=== PATIENT | female | born 1935 | race Caucasian/White ===

== ENCOUNTER 2019-03-23 20:24 | Inpatient (IN) | payer MEDICARE, OTHER ==
[~2019-03-23] VITALS: Ht 165.1 cm; Wt 80.3 kg
[2019-03-23] MEDS ORDERED: NAPR-1009 PO (20:41)
[2019-03-23] MEDS ORDERED: VENL75CA56 PO (20:41)
[2019-03-23] MEDS ORDERED: [UNRECOGNIZED DRUG - REMARK] (20:42)
[2019-03-23] MEDS ORDERED: PRAV20TA PO (20:42)
--- NOTE | 2019-03-23 20:52 | NUR ---
Dr. Robbins at bedside for MSE.
[2019-03-23 21:00] LABS: BASOPHILS # (AUTO) 0.1 K/uL (0.0-8.0); BASOPHILS % (AUTO) 1.2 % (0.0-2.0); EOSINOPHILS # (AUTO) 0.3 K/uL (0.0-0.7); EOSINOPHILS % (AUTO) 3.3 % (0.0-7.0); HEMOGLOBIN 12.3 g/dL (10.9-14.3); LYMPHOCYTES # (AUTO) 1.4 K/uL (20.0-40.0); LYMPHOCYTES % (AUTO) 18.5 % (20.5-51.5); MEAN CORPUSCULAR HEMOGLOBIN 28.1 uug (24.7-32.8); MEAN CORPUSCULAR HGB CONC 32 g/dL (32.3-35.6); MEAN CORPUSCULAR VOLUME 86.9 fL (75.5-95.3); MONOCYTES # (AUTO) 0.8 K/uL (2.0-10.0); MONOCYTES % (AUTO) 10.1 % (0.0-11.0); NEUTROPHILS # (AUTO) 5.1 K/uL (1.8-8.9); NEUTROPHILS % (AUTO) 66.9 % (38.5-71.5); PLATELET COUNT (AUTO) 292 K/uL (179-408); RED BLOOD CELL COUNT(AUTO) 4.38 MIL/uL (3.63-4.92); WHITE BLOOD COUNT (AUTO) 7.7 K/uL (3.8-11.8)
[2019-03-23 21:07] LABS: CREATININE 0.9 mg/dL (0.6-1.3); POTASSIUM 3.9 mmol/L (3.5-5.1)
[2019-03-23] MEDS ORDERED: ONDANSETRON 4 MG/2 ML VIAL ONE (21:12)
[2019-03-23] MEDS ORDERED: GLUCAGON,HUMAN RECOMBINANT 1 MG VIAL ONE ×2 (21:13→22:03)
[2019-03-23 21:15] LABS: BILIRUBIN,DIRECT 0.1 mg/dL (0.0-0.2); BILIRUBIN,TOTAL 0.2 mg/dL (0.2-1.0); TOTAL PROTEIN, SERUM 7.1 g/dL (6.4-8.2)
[2019-03-23] MEDS ORDERED: GLUCAGON,HUMAN RECOMBINANT 1 MG VIAL IVP ONE ×2 (21:15→22:00)
[2019-03-23] MEDS ORDERED: ONDANSETRON 4 MG/2 ML VIAL IV ONE (21:15)
--- NOTE | 2019-03-23 21:21 | NUR ---
Xray at bedside.
--- NOTE | 2019-03-23 21:32 | NUR ---
Pt states unable to provide urine at this time, just went at the restaurant.
--- NOTE | 2019-03-23 21:53 | NUR ---
Pt states still feels like something is stuck in her throat but has stopped vomiting.
--- NOTE | 2019-03-23 22:24 | NUR ---
Performed swallow eval, patient had difficulty swallowing 5ml of water and started gagging.
--- NOTE | 2019-03-23 22:39 | NUR ---
Dr. Robbins speaking with Dr. Stephen Mills for GI consult.
[2019-03-23] MEDS ORDERED: IV NS 1000 ML 1,000 ML IV ONE (22:45)
--- NOTE | 2019-03-23 22:48 | NUR ---
Dr. Robbins speaking with Sergio Hermosillo NP. Patient accepted for admission to CCU for esophageal food impaction.
--- NOTE | 2019-03-23 22:50 | NUR ---
Sergio Hermosillo DNP at bedside.
--- NOTE | 2019-03-23 23:17 | NUR ---
Eleanor sanchez in ED - 03/24/19 at 0012 by LORE Report given to Otilio MILLARD.
--- NOTE | 2019-03-23 23:17 | NUR ---
Report given to Amaris [employer]RA[employer].
[2019-03-23] MEDS ORDERED: IV NS 1000 ML 1,000 ML IV PRN (23:31)
[2019-03-23] MEDS ORDERED: Z GUARD REMEDY PASTE 57 GM TUBE TOP PRN (23:45)
[2019-03-23] MEDS ORDERED: ONDANSETRON 4 MG/2 ML VIAL IV PRN (23:45)
[2019-03-24] VITALS (9 sets, daily range): BP systolic 126–157; BP diastolic 60–80
--- NOTE | 2019-03-24 | NUR ---
Admitted an 84 y.o female patient from ER via [facility] with DX: food impaction. AAO, assisted to the BR; gait steady. Voided without difficulty. To CCU2; attached to bedside monitor: SR, denies SOB but gagging, coughing and spitting out white secretions. CCU routines discussed with patient; verbalized understanding. Assessment done.
--- NOTE | 2019-03-24 02:17 | NUR ---
Sat in the 80's when asleep; O2 2 L NC administered.
--- NOTE | 2019-03-24 04:00 | NUR ---
Up to [facility] with assist; voided. No dizziness or chest pain during ambulation.
--- NOTE | 2019-03-24 05:20 | NUR ---
Surgery called that they are taking patient down for EGD by Dr. Mills. No consent. No communication with Dr. Mills by me re: this. [employer] Former aware.
--- NOTE | 2019-03-24 05:30 | NUR ---
Call placed to Dr. Mills; order received to obtain surgical consent for EGD. Consent obtained from patient. Preop checklist completed.
[2019-03-24 05:40] LABS: BASOPHILS # (AUTO) 0.1 K/uL (0.0-8.0); BASOPHILS % (AUTO) 0.8 % (0.0-2.0); EOSINOPHILS # (AUTO) 0.2 K/uL (0.0-0.7); EOSINOPHILS % (AUTO) 3.2 % (0.0-7.0); HEMATOCRIT 35.8 % (31.2-41.9); HEMOGLOBIN 11.7 g/dL (10.9-14.3); LYMPHOCYTES # (AUTO) 1.5 K/uL (20.0-40.0); LYMPHOCYTES % (AUTO) 23.1 % (20.5-51.5); MEAN CORPUSCULAR HEMOGLOBIN 27.8 uug (24.7-32.8); MEAN CORPUSCULAR HGB CONC 33 g/dL (32.3-35.6); MONOCYTES # (AUTO) 0.7 K/uL (2.0-10.0); MONOCYTES % (AUTO) 10.7 % (0.0-11.0); NEUTROPHILS # (AUTO) 4.1 K/uL (1.8-8.9); NEUTROPHILS % (AUTO) 62.2 % (38.5-71.5); PLATELET COUNT (AUTO) 287 K/uL (179-408); RED BLOOD CELL COUNT(AUTO) 4.21 MIL/uL (3.63-4.92); WHITE BLOOD COUNT (AUTO) 6.6 K/uL (3.8-11.8)
--- NOTE | 2019-03-24 05:50 | NUR ---
Report given to Irasema RN. To Surgery per bed with continuous monitoring. Belongings at bedside.
[2019-03-24 05:53] LABS: *BILIRUBIN,URIN NEGATIVE (NEGATIVE); *BLOOD, URINE NEGATIVE (NEGATIVE); *CLARITY,URINE CLEAR (CLEAR); *COLOR,URINE YELLOW (YELLOW); *KETONES,URINE NEGATIVE (NEGATIVE); *UROBILINOGEN,URINE 0.2 E.U./dl (NORMAL); LEUKOCYTE ESTERASE ,URINE NEGATIVE (NEGATIVE); NITRITE, URINE NEGATIVE (NEGATIVE); PH,URINE 5.5 (5.0-8.0); UGLUCOSE NEGATIVE (NEGATIVE)
[2019-03-24 05:56] LABS: CREATININE 0.6 mg/dL (0.6-1.3); PHOSPHOROUS 3.9 mg/dL (2.5-4.9); POTASSIUM 4.1 mmol/L (3.5-5.1)
[2019-03-24 06:02] LABS: THYROID STIMULATING HORMONE 1.159 mIU/mL (0.358-3.740)
[2019-03-24] MEDS ORDERED: ONDANSETRON 4 MG/2 ML VIAL ONE (06:49)
[2019-03-24] MEDS ORDERED: ALBUTEROL SULFATE 2.5 MG/3 ML NEBU ONE (07:01)
--- NOTE | 2019-03-24 07:20 | NUR ---
A visit from GI physician Dr. Mills and as reported by him patient stable no significant finding on EGD, pt. with food impaction only esophagus dilated and food particles removed. As stated by Dr. Mills patient stable to be down-graded to Med-surge. Attending Bay called to be notified.
--- NOTE | 2019-03-24 07:50 | NUR ---
Patient brought in from Recovery vitals stable 98.5 oral temp and sbp of 142/76, HR of 94. RR of 16 95% saturation on 2L NC. as reported dilation and cleaning of esophageal area done due to food impaction.
--- NOTE | 2019-03-24 08:30 | NUR ---
Attending Mino called report given He was informed of Dr. Mills's report and finding with EGD. Orders to down-grade pt. to med-surge received.
--- NOTE | 2019-03-24 09:30 | NUR ---
Telephone report given to floor R.N. F. patient will be taken up to room 306 via wheel-chair.
--- NOTE | 2019-03-24 09:45 | NUR ---
Patient assisted to the bathroom, steady gait, vitals wnl. after this patient taken up to room, 306 by receiving R.N.
--- NOTE | 2019-03-24 10:00 | NUR ---
Received Report form CCU ; Patient in stable condtion anox4 with no signs of distress; patient will continue to be monitored.
[2019-03-24] MEDS ORDERED: PROPOFOL 200 MG/20 ML BOTTLE IV ONE (15:59)
[2019-03-24] MEDS ORDERED: LIDOCAINE-MPF 2% 5 ML VIAL IJ ONE (15:59)
--- NOTE | 2019-03-24 16:00 | NUR ---
Patient discharged home in stable condition with no signs of distress; patient with stable vital signs ; patient educated on discharge instructions ; patient verbalized understanding ; patient picked up by cousin in private car.
== END 2019-03-24 16:00 | disposition home or self-care (01) | DRG 394 ==
LOC: ER 20:28 → CCU 23:32 → MEDSURG3 03-24 10:15
PROVIDERS: ADMIT Nurse Practitioner Acute Care; ATTEND Nurse Practitioner Acute Care
PROC: 0DC58ZZ Extirpation of Matter from Esophagus, Via Natural or Artificial Opening Endoscopic (ICD-10-PCS; principal; 2019-03-24)
PROC: 0D738ZZ Dilation of Lower Esophagus, Via Natural or Artificial Opening Endoscopic (ICD-10-PCS; 2019-03-24)
DX: T18.128A Food in esophagus causing other injury, initial encounter (principal); C85.90 Non-Hodgkin lymphoma, unspecified, unspecified site; J98.11 Atelectasis; K44.0 Diaphragmatic hernia with obstruction, without gangrene; X58.XXXA Exposure to other specified factors, initial encounter; K22.2 Esophageal obstruction; Y92.511 Restaurant or cafe as the place of occurrence of the external cause; K29.70 Gastritis, unspecified, without bleeding; Z98.1 Arthrodesis status; Z92.21 Personal history of antineoplastic chemotherapy; E86.0 Dehydration; J40 Bronchitis, not specified as acute or chronic; I70.0 Atherosclerosis of aorta; I11.9 Hypertensive heart disease without heart failure; E78.5 Hyperlipidemia, unspecified; Z83.3 Family history of diabetes mellitus; R79.89 Other specified abnormal findings of blood chemistry
CPT/HCPCS: 36415; 70030-TC; 70360; 71045; 83690; 83735; 84100; 84443; 85025; 93005; A4217; A4663; C1726; G0378; J1610; J2405; J3490; J7030; J7120